=== PATIENT | male | born 1945 | race Caucasian/White ===

== ENCOUNTER 2016-05-01 18:59 | Observation (INO) | payer BC, MEDICARE ==
[~2016-05-01] VITALS: Ht 177.8 cm; Wt 84.5 kg
[2016-05-01 18:59] VITALS: BP 191/93; PULSE 95; RESP 20; TEMP 98; O2SAT 96
[2016-05-01 19:00] VITALS: BP 161/101; PULSE 100; RESP 16; TEMP 97.5; O2SAT 95
[2016-05-01 19:10] VITALS: BP_SYST 154; BP_SYST 161; BP_DIAS 101; BP_DIAS 91; PULSE 89; RESP 18; O2SAT 96; O2SAT 97
[2016-05-01] MEDS ORDERED: PROP150T PO (19:18)
[2016-05-01] MEDS ORDERED: NYST15T TOPICAL (19:18)
[2016-05-01] MEDS ORDERED: LATA0.002 EACH EYE (19:18)
[2016-05-01] MEDS ORDERED: DIOV160T6 PO (19:18)
[2016-05-01] MEDS ORDERED: DICL1GEL TOPICAL (19:18)
[2016-05-01] MEDS ORDERED: CLIN1LOT TOPICAL (19:18)
[2016-05-01] MEDS ORDERED: ZETI10TA5 PO (19:18)
[2016-05-01] MEDS ORDERED: NIAC500T5 PO (19:18)
--- NOTE | 2016-05-01 19:29 | PD ---
HPI Chief Complaint: Cardiac Complaint Time Seen by Provider: 19:22 Travel History International Travel<30 days: No Contact w/Intl Traveler<30days: No Traveled to known affect area: No History of Present Illness HPI The patient is a 70-year-old male with a history of fairly rare intermittent atrial fibrillation, he gets an episode approximately once yearly who complains of a sensation in his chest of palpitations and irregular heartbeat which radiated up into his neck veins at 2:30 PM today. The patient took 2 Rythmol, 1 Xanax and 2, 25 mg atenolol tablets. He denies any chest discomfort, shortness of breath. He denies any syncopal or near syncopal spells. He took a 325 mg aspirin. He is not on any anticoagulants. PFSH Past Medical History Cardiovascular Problems: Yes (AFIB, HTN) Social History Tobacco Use: No Allergies-Medications (Allergen,Severity, Reaction): Coded Allergies: No Known Allergies (Unverified , 05/01/16) Reported Meds & Prescriptions Reported Meds & Active Scripts Active Reported Clindamycin Topical (Clindamycin Phosphate) 1% Lotn 1 Applic TOPICAL BID PRN Nystatin Topical (Nystatin) 100,000 unit/gm Cream 1 Applic TOPICAL Q6HR Voltaren Topical (Diclofenac Topical) 1% Gel 1 Applic TOPICAL QID Propafenone (Propafenone HCl) 150 Mg Tab 150 Mg PO Q8HR Latanoprost Opth Drops (Latanoprost) 0.005% Drops 1 Drop EACH EYE HS Refrigerate until opened. Zetia (Ezetimibe) 10 Mg Tab 10 Mg PO DAILY Niacin 500 Mg Tab 500 Mg PO DAILY Diovan (Valsartan) 160 Mg Tab 160 Mg PO DAILY Review of Systems Except as stated in HPI: all other systems reviewed are Neg Physical Exam Narrative GENERAL: The patient is alert, oriented 3 and minimal apparent distress with his palpitation sensation in his left upper chest and neck. His vital signs show blood pressure 161/101 with a heart rate of 100 and otherwise normal. SKIN: Warm and dry. HEAD: Atraumatic. Normocephalic. EYES: Pupils equal and round. No scleral icterus. No injection or drainage. ENT: No nasal bleeding or discharge. Mucous membranes pink and moist. NECK: Trachea midline. No JVD. CARDIOVASCULAR: Atrial fibrillation with slight RVR. No murmur appreciated. RESPIRATORY: No accessory muscle use. Clear to auscultation. Breath sounds equal bilaterally. GASTROINTESTINAL: Abdomen soft, non-tender, nondistended. Hepatic and splenic margins not palpable. MUSCULOSKELETAL: No obvious deformities. No clubbing. No cyanosis. No edema. NEUROLOGICAL: Awake and alert. No obvious cranial nerve deficits. Motor grossly within normal limits. Normal speech. PSYCHIATRIC: Appropriate mood and affect; insight and judgment normal. Data Data Last Documented VS Vital Signs Date Time Temp Pulse Resp B/P Pulse Ox O2 Delivery O2 Flow Rate FiO2 05/01/16 19:10 Room Air 05/01/16 19:10 89 18 161/101 96 154/91 05/01/16 19:00 97.5 Orders Electrocardiogram (05/01/16 19:22) Ckmb (Isoenzyme) Profile (05/01/16 19:22) Complete Blood Count With Diff (05/01/16 19:22) Comprehensive Metabolic Panel (05/01/16 19:22) Magnesium (Mg) (05/01/16 19:22) Prothrombin Time / Inr (Pt) (05/01/16 19:22) Act Partial Throm Time (Ptt) (05/01/16 19:22) Troponin I (05/01/16 19:22) Ecg Monitoring (05/01/16 19:22) Bilateral Bp Monitoring (05/01/16 19:22) Iv Access Insert/Monitor (05/01/16 19:22) Oximetry (05/01/16 19:22) Oxygen Administration (05/01/16 19:22) Sodium Chloride 0.9% Flush (Ns Flush) (05/01/16 19:30) Chest, Pa & Lat (05/01/16 19:22) CKMB (05/01/16 19:10) CKMB% (05/01/16 19:10) Place In Observation (05/01/16 ) Vital Signs (Adult) Q4H (05/01/16 20:59) Activity Oob With Assistance (05/01/16 20:59) [employer] / Telemetry .CONTINUOUS (05/01/16 20:59) Diet Heart Healthy (05/02/16 Breakfast) Sodium Chlor 0.9% 1000 Ml Inj (Ns 1000 M (05/01/16 21:00) Sodium Chloride 0.9% Flush (Ns Flush) (05/01/16 21:00) Sodium Chloride 0.9% Flush (Ns Flush) (05/01/16 21:00) Ondansetron Inj (Zofran Inj) (05/01/16 21:00) Bisacodyl Supp (Dulcolax Supp) (05/01/16 21:00) Comprehensive Metabolic Panel (05/02/16 06:00) Complete Blood Count With Diff (05/02/16 06:00) Troponin I (05/02/16 00:00) Troponin I (05/02/16 06:00) Acetaminophen (Tylenol) (05/01/16 21:00) Acetamin-Hydrocod 325-5 Mg ([place] 5-325 (05/01/16 21:00) Morphine Inj (Morphine Inj) (05/01/16 21:00) Ezetimibe (Zetia) (05/02/16 09:00) Latanoprost 0.005% Opth Soln (Xalatan 0. (05/01/16 21:00) Propafenone (Rythmol) (05/01/16 22:00) Valsartan (Diovan) (05/02/16 09:00) Heparin Infusion PAPA.Q1H (05/01/16 21:02) Heparin Inj (Heparin Inj) (05/01/16 21:15) Heparin Inj (Heparin Inj) (05/02/16 03:15) Heparin Inj (Heparin Inj) (05/02/16 03:15) Heparin-D5w Inj (Heparin-D5w Inj) (05/01/16 21:15) Act Partial Throm Time (Ptt) (05/01/16 21:02) Cbc No Diff, Includes Plts (05/01/16 21:02) Cbc No Diff, Includes Plts (05/04/16 06:00) Act Partial Throm Time (Ptt) (05/02/16 04:02) Occult Blood (Hemoccult) Stool (05/01/16 21:02) Labs Laboratory Tests Test 05/01/16 19:10 White Blood Count 6.6 TH/MM3 Red Blood Count 5.48 MIL/MM3 Hemoglobin 17.5 GM/DL Hematocrit 51.3 % Mean Corpuscular Volume 93.5 FL Mean Corpuscular Hemoglobin 32.0 PG Mean Corpuscular Hemoglobin 34.2 % Concent Red Cell Distribution Width 11.8 % Platelet Count 277 TH/MM3 Mean Platelet Volume 7.1 FL Neutrophils (%) (Auto) 70.7 % Lymphocytes (%) (Auto) 16.6 % Monocytes (%) (Auto) 9.4 % Eosinophils (%) (Auto) 2.8 % Basophils (%) (Auto) 0.5 % Neutrophils # (Auto) 4.7 TH/MM3 Lymphocytes # (Auto) 1.1 TH/MM3 Monocytes # (Auto) 0.6 TH/MM3 Eosinophils # (Auto) 0.2 TH/MM3 Basophils # (Auto) 0.0 TH/MM3 CBC Comment DIFF FINAL Differential Comment Prothrombin Time 11.2 SEC Prothromb Time International 1.0 RATIO Ratio Activated Partial 28.7 SEC Thromboplast Time Sodium Level 142 MEQ/L Potassium Level 4.4 MEQ/L Chloride Level 106 MEQ/L Carbon Dioxide Level 29.1 MEQ/L Anion Gap 7 MEQ/L Blood Urea Nitrogen 16 MG/DL Creatinine 1.20 MG/DL Estimat Glomerular Filtration 60 ML/MIN Rate Random Glucose 98 MG/DL Calcium Level 8.7 MG/DL Magnesium Level 2.5 MG/DL Total Bilirubin 0.7 MG/DL Aspartate Amino Transf 45 U/L (AST/SGOT) Alanine Aminotransferase 122 U/L (ALT/SGPT) Alkaline Phosphatase 65 U/L Total Creatine Kinase 162 U/L Creatine Kinase MB 2.6 NG/ML Troponin I LESS THAN 0.02 NG/ML Total Protein 7.7 GM/DL Albumin 4.0 GM/DL [facility] Medical Decision Making Medical Screen Exam Complete: Yes Emergency Medical Condition: Yes Medical Record Reviewed: Yes Interpretation(s) EKG shows atrial fib with rapid ventricular response of 102. The CBC is normal except for hemoglobin of 17.5 and hematocrit of 51.3. The coagulation profile is normal and the complete metabolic profile shows a GFR of 60, AST of 45, ALT of 122 but is otherwise normal. The cardiac enzymes are normal. Differential Diagnosis Atrial fibrillation with rapid ventricular response, acute coronary syndrome, electrolyte imbalance, renal insufficiency, anemia Narrative Course It is now 8:51 PM and the patient is still in atrial fibrillation with response rate in the mid 80s. The patient will be 23 hour observation here at [facility]. The patient takes Rythmol 150 mg every 8 hours and Xanax 0.5 mg every 6 hours and atenolol 50 mg every morning when he gets atrial fibrillation. He thinks this may help him convert back to normal sinus rhythm. Physician Communication Physician Communication I discussed the patient with Dr. Ng in the patient's licensed pharmacist in [place], who was covering for [facility] and [place]. Diagnosis Primary Impression: Atrial fibrillation with rapid ventricular response Additional Impression: Anxiety Luis Antonio Song MD May 01, 2016 19:29
[2016-05-01] MEDS ORDERED: SODIUM CHLORIDE 0.9% FLUSH 5 ML FLUSH IVF PRN (19:30)
[2016-05-01 19:32] LABS: AUTOMATED NEUTROPHIL # 4.7 TH/MM3 (1.8-7.7); BASOPHIL % 0.5 % (0.0-2.0); EOSINOPHIL # 0.2 TH/MM3 (0-0.4); EOSINOPHIL % 2.8 % (0.0-4.0); HEMATOCRIT 51.3 % (39.0-51.0); HEMO FLAGS DIFF FINAL; LYMPH % 16.6 % (9.0-44.0); LYMPHOCYTE # 1.1 TH/MM3 (1.0-4.8); MEAN CELL VOLUME 93.5 FL (80.0-100.0); MEAN CORPUSCULAR HGB CONC 34.2 % (32.0-36.0); MONO % 9.4 % (0.0-8.0); NEUT % 70.7 % (16.0-70.0); PLATELET COUNT 277 TH/MM3 (150-450); RED BLOOD COUNT 5.48 MIL/MM3 (4.50-5.90); RED CELL DISTRIBUTION WIDTH 11.8 % (11.6-17.2); WHITE BLOOD COUNT 6.6 TH/MM3 (4.0-11.0)
[2016-05-01 19:48] LABS: CHLORIDE 106 MEQ/L (98-107); POTASSIUM 4.4 MEQ/L (3.5-5.1); SODIUM (NA) 142 MEQ/L (136-145)
[2016-05-01 19:52] LABS: ANION GAP 7 MEQ/L (5-15); BICARBONATE 29.1 MEQ/L (21.0-32.0); BLOOD UREA NITROGEN 16 MG/DL (7-18); MAGNESIUM 2.5 MG/DL (1.5-2.5)
[2016-05-01 19:55] LABS: ALT (GPT) 122 U/L (12-78); AST (GOT) 45 U/L (15-37); GLOMERULAR FILTRATION RATE 60 ML/MIN (>89)
[2016-05-01 19:56] LABS: APTT (PATIENT) 28.7 SEC (24.3-30.1); PROTHROMBIN TIME - PATIENT 11.2 SEC (9.8-11.6)
[2016-05-01 19:57] LABS: TOTAL BILIRUBIN ADULT 0.7 MG/DL (0.2-1.0)
[2016-05-01 19:58] LABS: ALKALINE PHOSPHATASE 65 U/L (45-117); CREATINE KINASE 162 U/L (39-308)
[2016-05-01 20:10] LABS: CKMB 2.6 NG/ML (0.5-3.6)
[2016-05-01] MEDS ORDERED: ACETAMINOPHEN 325 MG TAB PO PRN (21:00)
[2016-05-01] MEDS ORDERED: SODIUM CHLORIDE 0.9% FLUSH 5 ML FLUSH FLUSH PRN (21:00)
[2016-05-01] MEDS ORDERED: BISACODYL 10 MG SUPP PR PRN (21:00)
[2016-05-01] MEDS: SODIUM CHLORIDE 0.9% FLUSH 5 ML FLUSH FLUSH SCH (21:00)
[2016-05-01] MEDS ORDERED: LATANOPROST 0.005% OPHT SOLN 2.5 ML BTL EACH EYE SCH (21:00)
[2016-05-01] MEDS ORDERED: ONDANSETRON HCL 4 MG/2 ML VIAL IVP PRN (21:00)
[2016-05-01] MEDS ORDERED: SODIUM CHLOR 0.9% 1000 ML INJ 1,000 ML IV ONE (21:00)
[2016-05-01] MEDS ORDERED: MORPHINE SULFATE 4 MG/ML INJ IV PRN (21:00)
[2016-05-01] MEDS ORDERED: ACETAMINOPHEN/HYDROcodone 325 MG/5 MG TAB PO PRN (21:00)
--- NOTE | 2016-05-01 21:11 | RADHPO ---
EXAM DATE/TIME: 05/01/2016 19:27 [facility] COMPARISON: No previous studies available for comparison. INDICATIONS : Abnormal heart rate. MEDICAL HISTORY : Atrial fibrillation. SURGICAL HISTORY : None. ENCOUNTER: Initial ACUITY: 1 day PAIN SCORE: 0/10 LOCATION: Bilateral chest FINDINGS: PA and lateral views of the chest demonstrate the lungs to be symmetrically aerated without evidence of mass, infiltrate or effusion. Mild basilar atelectasis. The cardiomediastinal contours are unremar kable. Osseous structures are intact. CONCLUSION: 1. Minimal basilar atelectasis. No effusion. No pneumothorax. Marco Waldron MD on May 01, 2016 at 21:10 Board Certified Radiologist. This report was verified electronically.
[2016-05-01] MEDS ORDERED: HEPARIN-D5W INJ 250 ML IV SCH (21:15)
[2016-05-01] MEDS ORDERED: HEPARIN SODIUM - IV 10,000 UNITS/10 ML VIAL IV ONE (21:15)
[2016-05-01 21:25] VITALS: BP 152/96; PULSE 97; RESP 17; O2SAT 96
[2016-05-01 21:50] VITALS: BP 138/80; PULSE 88; RESP 16; O2SAT 97
[2016-05-01 22:42] VITALS: BP 139/90; PULSE 95; RESP 17; O2SAT 96
[2016-05-01] MEDS: PROPAFENONE HCL 150 MG TAB PO SCH (22:51)
[2016-05-02] MEDS ORDERED: ALPR.5 PO (00:54)
[2016-05-02 01:00] VITALS: BP 142/89
[2016-05-02] MEDS ORDERED: ALPRAZolam 0.5 MG TAB PO ONE (01:00)
[2016-05-02 01:10] VITALS: BP 150/108; PULSE 109; RESP 16; TEMP 96.4; O2SAT 91
[2016-05-02 02:04] VITALS: PULSE 92
[2016-05-02] MEDS ORDERED: HEPARIN SODIUM - IV 10,000 UNITS/10 ML VIAL IV PRN ×2 (03:15)
[2016-05-02 04:00] VITALS: BP 160/105; PULSE 94; RESP 18; TEMP 96.5; O2SAT 98
[2016-05-02 04:23] LABS: AUTOMATED NEUTROPHIL # 4.1 TH/MM3 (1.8-7.7); BASOPHIL # 0.1 TH/MM3 (0-0.2); EOSINOPHIL # 0.2 TH/MM3 (0-0.4); EOSINOPHIL % 3.6 % (0.0-4.0); HEMATOCRIT 49.8 % (39.0-51.0); HEMO FLAGS DIFF FINAL; LYMPH % 22.7 % (9.0-44.0); LYMPHOCYTE # 1.5 TH/MM3 (1.0-4.8); MEAN CELL VOLUME 94.6 FL (80.0-100.0); MEAN CORPUSCULAR HEMOGLOBIN 31.7 PG (27.0-34.0); MEAN CORPUSCULAR HGB CONC 33.5 % (32.0-36.0); MONO % 9.9 % (0.0-8.0); NEUT % 62.8 % (16.0-70.0); PLATELET COUNT 235 TH/MM3 (150-450); RED BLOOD COUNT 5.26 MIL/MM3 (4.50-5.90); RED CELL DISTRIBUTION WIDTH 12.2 % (11.6-17.2); WHITE BLOOD COUNT 6.5 TH/MM3 (4.0-11.0)
[2016-05-02 04:42] LABS: CHLORIDE 110 MEQ/L (98-107); POTASSIUM 4.1 MEQ/L (3.5-5.1); SODIUM (NA) 142 MEQ/L (136-145)
[2016-05-02 04:47] LABS: APTT (PATIENT) 49.9 SEC (24.3-30.1)
[2016-05-02 05:19] LABS: ALKALINE PHOSPHATASE 54 U/L (45-117); ALT (GPT) 103 U/L (12-78); ANION GAP 9 MEQ/L (5-15); AST (GOT) 41 U/L (15-37); BICARBONATE 23.2 MEQ/L (21.0-32.0); BLOOD UREA NITROGEN 17 MG/DL (7-18); GLOMERULAR FILTRATION RATE 66 ML/MIN (>89); TOTAL BILIRUBIN ADULT 0.8 MG/DL (0.2-1.0)
[2016-05-02] MEDS: PROPAFENONE HCL 150 MG TAB PO SCH (06:09)
[2016-05-02 08:10] VITALS: BP 142/83; PULSE 67; RESP 18; TEMP 96.3; O2SAT 98
[2016-05-02] MEDS: SODIUM CHLORIDE 0.9% FLUSH 5 ML FLUSH FLUSH SCH (08:45)
[2016-05-02] MEDS ORDERED: EZETIMIBE 10 MG TAB PO SCH (09:00)
[2016-05-02] MEDS ORDERED: VALSARTAN 160 MG TAB PO SCH (09:00)
[2016-05-02] MEDS ORDERED: ASPIRIN EC 81 MG TABEC PO SCH (09:00)
[2016-05-02] MEDS ORDERED: ATENOLOL 50 MG TAB PO SCH (09:00)
[2016-05-02] MEDS ORDERED: ASPI325T PO (09:56)
[2016-05-02] MEDS ORDERED: ATEN25TA PO (09:56)
--- NOTE | 2016-05-02 10:31 | HHI.HP ---
[facility] Service [facility] Primary Care Physician Non-Staff Admission Diagnosis atrial fibrillation with rapid ventricular response Diagnoses: (1) Paroxysmal atrial fibrillation Travel History International Travel<30 Days: No Contact w/Intl Traveler <30 Da: No Traveled to Known Affected Are: No History of Present Illness This is a pleasant 70-year-old male with past medical history of paroxysmal atrial fibrillation and hypertension. He follows with a knife setter [facility] out of [place]. He states that he can feel when he goes into A. fib. Apparently yesterday afternoon he felt that he was getting palpitations. He takes Rythmol and 25 mg of atenolol daily as well as half of a 325 mg aspirin. Yesterday he took several extra atenolol. He then came to the ER. He states that his knife setter wants him to take Rythmol twice daily but he would only agree to once daily. He also does not want to be on anticoagulation and has discussed that in detail with his knife setter [facility]. The patient believes however that when he goes back into atrial fibrillation that he needs to go to the hospital to get back out of atrial fibrillation. Apparently that has worked for him several times. The patient has never had an ablation. The patient plans to be here for 6 months of the year. He does not have a local knife setter. The patient's heart rate has been at the highest 109 here. He was placed on a heparin drip overnight by the emergency department physician. He converted to normal sinus rhythm last evening. The patient does not have any shortness of breath, palpitations or chest pain. 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 Hypertension Hyperlipidemia Mitral valve prolapse Paroxysmal atrial fibrillation History of prostate cancer status post radiation last year Reported Medications Allergies Coded Allergies Type Severity Reaction Last Updated Verified No Known Allergies 05/01/16 No Active Scripts Medications Dose Route/Sig Days Date Category Dose Instructions Xanax (Alprazolam) 0.5 Mg Tab 0.5 Mg PO Q6H PRN 05/02/16 Reported Clindamycin Topical (Clindamycin Phosphate) 1% Lotn 1 Applic TOPICAL BID PRN 05/01/16 Reported Nystatin Topical (Nystatin) 100,000 unit/gm Cream 1 Applic TOPICAL Q6HR 05/01/16 Reported Voltaren Topical (Diclofenac Topical) 1% Gel 1 Applic TOPICAL QID 05/01/16 Reported Propafenone (Propafenone HCl) 150 Mg Tab 150 Mg PO Q8HR 05/01/16 Reported Latanoprost Opth Drops (Latanoprost) 0.005% Drops 1 Drop EACH EYE HS 05/01/16 Reported Refrigerate until opened. Zetia (Ezetimibe) 10 Mg Tab 10 Mg PO DAILY 05/01/16 Reported Niacin 500 Mg Tab 500 Mg PO DAILY 05/01/16 Reported Diovan (Valsartan) 160 Mg Tab 160 Mg PO DAILY 05/01/16 Reported Atenolol 25 mg daily 162.5 mg of aspirin daily. Allergies: Coded Allergies: No Known Allergies (Unverified , 05/01/16) Family History Reviewed and noncontributory Social History He smokes about a cigar a year and drinks one beer a year. Physical Exam Vital Signs Vital Signs Date Time Temp Pulse Resp B/P Pulse Ox O2 Delivery O2 Flow Rate FiO2 05/02/16 08:10 96.3 67 18 142/83 98 05/02/16 04:00 96.5 94 18 160/105 98 05/02/16 02:04 92 05/02/16 01:10 96.4 109 16 150/108 91 05/02/16 01:00 99 16 142/89 97 05/01/16 22:42 95 17 139/90 96 Room Air 05/01/16 21:50 88 16 138/80 97 Room Air 05/01/16 21:25 97 17 152/96 96 Room Air 05/01/16 21:05 Room Air 05/01/16 19:10 Room Air 05/01/16 19:10 Room Air 05/01/16 19:10 89 18 161/101 96 Room Air 154/91 05/01/16 19:10 97 Room Air 05/01/16 19:00 97.5 100 16 161/101 95 05/01/16 18:59 98.0 95 20 191/93 96 Room Air Physical Exam GENERAL: Well-nourished, well-developed pleasant and intelligent male patient. No apparent distress. SKIN: Warm and dry. HEAD: Normocephalic. EYES: No scleral icterus. No injection or drainage. NECK: Supple, trachea midline. No JVD or lymphadenopathy. CARDIOVASCULAR: Regular rate and rhythm without murmurs, gallops, or rubs. RESPIRATORY: Breath sounds equal and clear to auscultation bilaterally. No accessory muscle use. GASTROINTESTINAL: Abdomen soft, non-tender, nondistended. EXTREMITIES: No cyanosis, or edema. NEUROLOGICAL: Awake, alert, and oriented x 3. Non-focal. Laboratory Laboratory Tests Test 05/01/16 05/02/16 05/02/16 19:10 00:50 04:00 White Blood Count 6.6 6.5 Red Blood Count 5.48 5.26 Hemoglobin 17.5 16.7 Hematocrit 51.3 49.8 Mean Corpuscular Volume 93.5 94.6 Mean Corpuscular Hemoglobin 32.0 31.7 Mean Corpuscular Hemoglobin 34.2 33.5 Concent Red Cell Distribution Width 11.8 12.2 Platelet Count 277 235 Mean Platelet Volume 7.1 7.2 Neutrophils (%) (Auto) 70.7 62.8 Lymphocytes (%) (Auto) 16.6 22.7 Monocytes (%) (Auto) 9.4 9.9 Eosinophils (%) (Auto) 2.8 3.6 Basophils (%) (Auto) 0.5 1.0 Neutrophils # (Auto) 4.7 4.1 Lymphocytes # (Auto) 1.1 1.5 Monocytes # (Auto) 0.6 0.6 Eosinophils # (Auto) 0.2 0.2 Basophils # (Auto) 0.0 0.1 CBC Comment DIFF FINAL DIFF FINAL Differential Comment Prothrombin Time 11.2 Prothromb Time International 1.0 Ratio Activated Partial 28.7 49.9 Thromboplast Time Sodium Level 142 142 Potassium Level 4.4 4.1 Chloride Level 106 110 Carbon Dioxide Level 29.1 23.2 Anion Gap 7 9 Blood Urea Nitrogen 16 17 Creatinine 1.20 1.10 Estimat Glomerular Filtration 60 66 Rate Random Glucose 98 91 Calcium Level 8.7 8.3 Magnesium Level 2.5 Total Bilirubin 0.7 0.8 Aspartate Amino Transf 45 41 (AST/SGOT) Alanine Aminotransferase 122 103 (ALT/SGPT) Alkaline Phosphatase 65 54 Total Creatine Kinase 162 Creatine Kinase MB 2.6 Troponin I LESS THAN 0.02 LESS THAN 0.02 LESS THAN 0.02 Total Protein 7.7 6.6 Albumin 4.0 3.4 Result Diagram: 05/02/1639905/02/16399 Imaging Last Impressions Chest X-Ray 05/01/161921 Signed Impressions: Service Date/Time: Sunday, May 01, 2016 19:27 - CONCLUSION: 1. Minimal basilar atelectasis. No effusion. No pneumothorax. Marco Waldron MD Assessment and Plan Assessment and Plan -Paroxysmal atrial fibrillation. The patient converted to normal sinus rhythm last night. His heart rate was never significantly elevated, being 109 at the most during the A. fib episode. He is already on Rythmol and atenolol. He takes half of a 325 mg aspirin daily. The patient declines to consider anticoagulation and has already discussed this in detail with his knife setter taj wong. He has a knife setter [place] but will be here for 6 months of the year. He agrees to establish with [facility] and get a follow-up appointment there. We'll plan for discharge home with outpatient cardiology follow-up. Veronica Lua MD May 02, 2016 09:54
--- NOTE | 2016-05-02 10:32 | HHI.DCPOC ---
Discharge Care Plan Diagnosis: (1) Paroxysmal atrial fibrillation Goals to Promote Your Health * To prevent worsening of your condition and complications * To maintain your health at the optimal level Directions to Meet Your Goals Take your medications as prescribed Follow your dietary instruction Follow activity as directed Keep your appointments as scheduled Take your immunizations and boosters as scheduled If your symptoms worsen call your PCP, if no PCP go to Urgent Care Center or Emergency Room Smoking is Dangerous to Your Health. Avoid second hand smoke Call the 24-hour hour crisis hotline for domestic abuse at Veronica Lua MD May 02, 2016 09:57
--- NOTE | 2016-05-02 11:48 | EKG ---
Date Performed: 05/01/2016 Time Performed: 19:03:36 PTAGE: 70 years EKG: --- Warning: Data quality may affect interpretation --- Atrial fibrillation with rapid vent ricular response. Possible left anterior fascicular block Abnormal ECG NO PREVIOUS TRACING DOCTOR: Nelson Lubin Interpretating Date/Time 05/02/2016 11:45:03
== END 2016-05-02 10:27 | disposition home or self-care (01) ==
LOC: PHED 18:59 → PHEDA 21:18 → PH3B 05-02 01:05
PROVIDERS: ADMIT Family Medicine; ATTEND Family Medicine
DX: I48.0 Paroxysmal atrial fibrillation (principal); I10 Essential (primary) hypertension; I34.1 Nonrheumatic mitral (valve) prolapse; C61 Malignant neoplasm of prostate; E78.5 Hyperlipidemia, unspecified; F41.9 Anxiety disorder, unspecified; J98.11 Atelectasis; F17.200 Nicotine dependence, unspecified, uncomplicated; Z92.3 Personal history of irradiation
CPT/HCPCS: 71020; 80053; 82550; 82552; 83735; 84484; 85025; 85610; 85730; 93005; 99285; G0378; J1644; J7030